=== PATIENT | female | born 1980 | race African-American/Black ===

== ENCOUNTER 2019-01-27 13:41 | Outpatient (CLI) | payer BC ==
--- NOTE | 2019-01-27 14:37 | RAD ---
3 VIEWS LEFT ANKLE: Date: 01/27/19 HISTORY: Fall with left foot and ankle pain. FINDINGS: 3 views of the left ankle show no evidence of acute fracture or dislocation. Mild diffuse soft tissue swelling is seen. No degenerative changes are present. IMPRESSION: No evidence of acute osseous abnormality. POS: [facility]
--- NOTE | 2019-01-27 14:39 | RAD ---
THREE VIEWS OF THE LEFT FOOT: COMPARISON: None. HISTORY: Fall with left foot and ankle pain. FINDINGS: Three views of the left foot show no evidence of acute fracture or dislocation. No degenerative samayoa ges are seen. No soft tissue swelling is present. IMPRESSION: No evidence of acute osseous abnormality. POS: [facility]
== END 2019-01-27 13:42 | disposition home or self-care (01) ==
LOC: BICRAD 13:41
PROVIDERS: ATTEND Family Medicine
DX: S93.402A Sprain of unspecified ligament of left ankle, initial encounter (principal); M79.672 Pain in left foot

== ENCOUNTER 2021-11-08 09:48 | Outpatient (CLI) | payer BC | END 2021-11-08 09:49 | disposition home or self-care (01) | LOC: BICULT 09:48 | PROVIDERS: ATTEND Family Medicine | DX: D25.9 Leiomyoma of uterus, unspecified (principal) | CPT/HCPCS: 76856 ==